=== PATIENT | female | born 1930 | race Caucasian/White ===

== ENCOUNTER → 2017-06-10 | Outpatient (CLI) | payer MEDICARE, BC ==
--- NOTE | 2017-06-10 14:15 | MR ---
EXAMINATION TYPE: MR brain wo con DATE OF EXAM: 06/10/2017 COMPARISON: NONE HISTORY: Rt. sided weakness T1-weighted sagittal, T2, FLAIR, and diffusion axial, and T2 coronal coronal views of the brain are s ubmitted. There is no evidence of acute ischemia. The ventricles, basal cisterns, and sulci overlying the conv exities are consistent with the patient's age. There is no mass effect. Craniocervical junction maintained. Sella turcica has a normal appearance. No cerebellopontine angle mass. Changes of chronic bilateral mastoiditis noted. Periventricular areas of abnormal signal are nonspecific but most typical remote microvascular ischemia. Abnormal signal i nvolving the homero suggestive of remote ischemia. IMPRESSION: 1. No acute intracranial process. 2. Degenerative and nonspecific white matter changes most typical remote ischemia.
== END | disposition home or self-care (01) ==
LOC: RADMRIMAIN 13:07
PROVIDERS: ATTEND Family Medicine
DX: R90.82 White matter disease, unspecified (principal)
CPT/HCPCS: 70551

== ENCOUNTER 2019-02-17 20:05 | Emergency (ER) | payer MEDICARE, BC ==
[2019-02-17 20:11] VITALS: TEMP 97.9
[2019-02-17] MEDS ORDERED: Acetaminophen-Codeine 300-30mg TAB PO STA (20:50)
--- NOTE | 2019-02-17 21:11 | CT ---
EXAMINATION TYPE: CT brain daniella cortez DATE OF EXAM: 02/17/2019 COMPARISON: None HISTORY: Fall. CT DLP: 1180.8 mGycm Automated exposure control for dose reduction was used. TECHNIQUE: CT scan of the head and cervical spine are performed without contrast. FINDINGS: There is cerebral cortical atrophy. There is no mass effect nor midline shift. There is n o sign of intracranial hemorrhage. Calvarium is intact. There is mild hypodensity in the periventricu lar white matter. There is cervical dextroscoliosis. There is mild narrowing of disc spaces at C5-6 and C6-7 with spurr ing of the endplates. Facet joints are intact. Skull base is intact. There is no evidence of a fractu re. There is some apical pleural and pulmonary scarring in both lungs. There is a 3 cm cavitating inf iltrate in the lateral aspect left upper lobe. IMPRESSION: Cerebral atrophy. No acute intracranial abnormality. Mild spondylotic changes in the cervical spine with dextroscoliosis. No fracture seen. Cavitating infiltrate left upper lobe. The possibility of a tumor should be considered.
--- NOTE | 2019-02-17 21:40 | ED ---
Fall HPI - General Source: patient, family Mode of arrival: wheelchair <Boston Genao - Last Filed: 02/18/19 00:42> <Jael Melgar - Last Filed: 02/18/19 02:41> - General Chief Complaint: Fall Stated Complaint: Fall, L thigh swollen Time Seen by Provider: 02/17/19 20:12 - History of Present Illness Initial Comments: Patient is an 88-year-old female with history of Parkinson's is presenting to emergency Department after fall. Patient is nonverbal. Daughter is present in the room and states the patient lives with her. Daughter states she walked into the room and noticed the patient was laying supine on the floor. Daughter r eports swelling on the left upper leg that has slightly resolved with application of ice compress. Patient reports the pain is about 5 at rest and exacerbated with any movement. Daughter also reports the patient has had a cough for the past few days. Daughter denies given a patient medication to alleviate the symptoms. Daughter denies any trauma to the head. (Boston Genao) - Related Data Home Medications Medication Instructions Recorded Confirmed Artificial Tears Ointment 1 gm OPHTHALMIC BID 02/17/19 02/17/19 [Lubrifresh Pm Ointment] Atorvastatin Calcium [Lipitor] 10 mg PO HS 02/17/19 02/17/19 Brinzolamide/Brimonidine Tart 1 drop BOTH EYES BID 02/17/19 02/17/19 [Simbrinza 1%-0.2% Eye Drops] Carbidopa-Levodopa 25-100 mg 1 tab PO TID 02/17/19 02/17/19 [Sinemet 25-100] Insulin Glargine,Hum.rec.anlog 14 unit SQ HS 02/17/19 02/17/19 [Lantus Solostar] Insulin Lispro [humaLOG Kwikpen] See Protocol SQ ACHS 02/17/19 02/17/19 Lisinopril 40 mg PO DAILY 02/17/19 02/17/19 Travoprost [Travatan Z 0.004%] 1 drop BOTH EYES HS 02/17/19 02/17/19 cycloSPORINE 0.05% OPHTH SOLN 1 drop BOTH EYES BID 02/17/19 02/17/19 [Restasis] Allergies Allergy/AdvReac Type Severity Reaction Status Date / Time No Known Allergies Allergy Verified 02/17/19 22:57 Review of Systems ROS Other: All systems not noted in ROS Statement are negative. <Boston Genao - Last Filed: 02/18/19 00:42> ROS Other: All systems not noted in ROS Statement are negative. <MelgarJael Chika - Last Filed: 02/18/19 02:41> ROS Statement: Those systems with pertinent positive or pertinent negative responses have been documented in the HPI. Past Medical History Past Medical History: Cancer, Diabetes Mellitus, Hypertension Additional Past Medical History / Comment(s): parkinson's, breast ca History of Any Multi-Drug Resistant Organisms: None Reported Past Surgical History: Orthopedic Surgery Past Psychological History: No Psychological Hx Reported Smoking Status: Never smoker Past Alcohol Use History: None Reported Past Drug Use History: None Reported <Boston Genao - Last Filed: 02/18/19 00:42> General Exam Limitations: no limitations, language barrier General appearance: alert, in no apparent distress Head exam: Present: atraumatic, normocephalic, normal inspection, other (No lacerations or abrasions noted on the head. Negative Oliveira sign negative periorbital ecchymosis.) Eye exam: Present: normal appearance, PERRL, EOMI Pupils: Present: normal accommodation ENT exam: Present: normal exam, normal oropharynx, mucous membranes moist, TM's normal bilaterally, normal external ear exam, other (No hemotympanum) Neck exam: Present: normal inspection. Absent: tenderness, lymphadenopathy Respiratory exam: Present: normal lung sounds bilaterally Cardiovascular Exam: Present: regular rate, normal rhythm, normal heart sounds GI/Abdominal exam: Present: soft Extremities exam: Present: normal capillary refill, other (+2 dorsalis pedis and posterior tibials.). Absent: normal inspection (Lower extremity swelling on the left upper leg.), full ROM (Limited range of motion due to pain.), tenderness (Tenderness with palpation along the left upper leg.) Back exam: Present: normal inspection. Absent: paraspinal tenderness, vertebral tenderness Neurological exam: Present: alert, oriented X3 Psychiatric exam: Present: normal affect, normal mood Skin exam: Present: warm, intact, normal color <Boston Genao - Last Filed: 02/18/19 00:42> Course Vital Signs 02/17/19 02/17/19 02/17/19 20:08 23:30 23:44 Temperature 97.9 F Pulse Rate 100 89 86 Respiratory 14 18 16 Rate Blood Pressure 143/89 94/59 85/44 O2 Sat by Pulse 98 98 98 Oximetry 02/18/19 02/18/19 00:48 01:00 Temperature Pulse Rate 86 89 Respiratory 16 16 Rate Blood Pressure 111/71 97/59 O2 Sat by Pulse 97 98 Oximetry Medical Decision Making - Lab Data Result diagrams: 02/17/19 22:54 02/17/19 22:54 <Boston Genao - Last Filed: 02/18/19 00:42> - Lab Data Result diagrams: 02/17/19 22:54 02/17/19 22:54 <Jael Melgar - Last Filed: 02/18/19 02:41> - Medical Decision Making Patient is a 8-year-old female with a history of Parkinson's presents to the emergency Department after fall. X-ray series of the left lower extremity is indicative of a fracture of the proximal shaft of the femur. CT without contrast of the brain is negative for acute hemorrhage, midline shift, cerebral swelling. However the CT was able to detect a cavitating infiltrate a left upper lobe. Labs were obtained. At this time care will be transferred to Dr. Melgar. (Boston Genao) She was initially evaluated by mid-level provider. Imaging confirmed a displaced periprosthetic left femur fracture. I evaluated the patient who was neurovascularly intact distal to the femur, she did have a large thigh hematoma, the patient was keeping her leg in a flexed position. I did straighten the leg and placed in a leg immobilizer. Patient remained neurovascularly intact. Patient care was discussed with orthopedic surgery who recommended transfer to higher level of care. Patient care was then discussed with orthopedic surgery at [facility] who accepts the transfer. Patient was transferred to [facility] for further management. (Jael Melgar) - Lab Data Lab Results 02/17/19 02/17/19 02/17/19 Range/Units 22:54 22:54 22:54 WBC 14.2 H (3.8-10.6) k/uL RBC 3.16 L (3.80-5.40) m/uL Hgb 10.1 L (11.4-16.0) gm/dL Hct 31.1 L (34.0-46.0) % MCV 98.4 (80.0-100.0) fL MCH 32.0 (25.0-35.0) pg MCHC 32.5 (31.0-37.0) g/dL RDW 13.2 (11.5-15.5) % Plt Count 415 (150-450) k/uL PT 9.7 (9.0-12.0) sec INR 0.9 (<1.2) APTT 22.4 (22.0-30.0) sec Sodium 137 (137-145) mmol/L Potassium 4.4 (3.5-5.1) mmol/L Chloride 100 (98-107) mmol/L Carbon Dioxide 32 H (22-30) mmol/L Anion Gap 5 mmol/L BUN 21 H (7-17) mg/dL Creatinine 0.70 (0.52-1.04) mg/dL Est GFR (CKD-EPI)AfAm >90 (>60 ml/min/1.73 sqM) Est GFR (CKD-EPI)NonAf 79 (>60 ml/min/1.73 sqM) Glucose 99 (74-99) mg/dL Calcium 9.2 (8.4-10.2) mg/dL Total Bilirubin 0.3 (0.2-1.3) mg/dL AST 26 (14-36) U/L ALT 11 (9-52) U/L Alkaline Phosphatase 115 (38-126) U/L Total Protein 5.7 L (6.3-8.2) g/dL Albumin 3.3 L (3.5-5.0) g/dL Disposition Is patient prescribed a controlled substance at d/c from ED?: No Time of Disposition: 00:43 <Boston Genao - Last Filed: 02/18/19 00:42> Is patient prescribed a controlled substance at d/c from ED?: No - Out of Hospital Transfer - Req. Specs Out of Hospital Transfer - Requested Specifics: Other Emergency Center ([facility]) <Jael Melgar - Last Filed: 02/18/19 02:41> Clinical Impression: Fall, Fracture, proximal femur Disposition: OTHER INSTITUTION NOT DEFINED Instructions (If sedation given, give patient instructions): Fall Prevention for Older Adults (ED) Referrals: Shantelle Blackburn DO [Primary Care Provider] - 1-2 days
--- NOTE | 2019-02-17 21:53 | XR ---
EXAMINATION TYPE: XR Hip Complete LT DATE OF EXAM: 02/17/2019 COMPARISON: NONE HISTORY: Pain TECHNIQUE: 2 views FINDINGS: There is a left hip prosthesis. There is oblique fracture of the proximal shaft of the femu r. Lower end of the fracture is not included. The visualized left hemipelvis shows no displaced fract ure. Left sacroiliac joint appears intact. IMPRESSION: There is a fracture of the proximal shaft of the left femur.
--- NOTE | 2019-02-17 21:55 | XR ---
EXAMINATION TYPE: XR knee complete LT DATE OF EXAM: 02/17/2019 COMPARISON: NONE HISTORY: Fall. Pain. TECHNIQUE: 2 views FINDINGS: I see no displaced fracture. Tibial condyles are somewhat obscured. There is suboptimal pos itioning. There is no sign of a joint effusion. IMPRESSION: Limited exam. No displaced fracture seen of the left knee.
--- NOTE | 2019-02-17 22:05 | XR ---
EXAMINATION TYPE: XR femur LT DATE OF EXAM: 02/17/2019 COMPARISON: NONE HISTORY: Pain TECHNIQUE: 5 views FINDINGS: There is oblique fracture of the proximal shaft of the left femur. There is a 3 cm medial d isplacement. There is left hip prosthesis without dislocation. The knee joint is not well visualized but appears grossly intact. IMPRESSION: Fracture of the proximal shaft of the femur. Suboptimal evaluation of the knee joint. No obvious knee fracture.
--- NOTE | 2019-02-17 22:06 | XR ---
EXAMINATION TYPE: XR chest 1V DATE OF EXAM: 02/17/2019 COMPARISON: NONE HISTORY: Fall. Chest pain TECHNIQUE: Single frontal view of the chest is obtained. FINDINGS: There is a minimal area of increased density left upper lobe. The other lung judge are cl ear. There is no heart failure. Heart size is normal. Thoracic aorta is atheromatous. There is no ple ural effusion. IMPRESSION: Minimal left upper lobe infiltrate.
[2019-02-17 23:09] LABS: HCT 31.1 % (34.0-46.0); HGB 10.1 gm/dL (11.4-16.0); MCHC 32.5 g/dL (31.0-37.0); MCV 98.4 fL (80.0-100.0); Mean Platelet Volume 7.1; Platelet Count 415 k/uL (150-450); RBC 3.16 m/uL (3.80-5.40); RDW 13.2 % (11.5-15.5); WBC 14.2 k/uL (3.8-10.6)
[2019-02-17 23:21] LABS: INR 0.9 (<1.2); Partial Thromboplastin Time 22.4 sec (22.0-30.0); Prothrombin Time 9.7 sec (9.0-12.0)
[2019-02-17 23:27] LABS: ALT 11 U/L (9-52); AST 26 U/L (14-36); African American GFR (CKD) >90 (>60 ml/min/1.73 sqM); Albumin 3.3 g/dL (3.5-5.0); Alkaline Phosphatase 115 U/L (38-126); Anion Gap 5 mmol/L; Blood Urea Nitrogen 21 mg/dL (7-17); Calcium 9.2 mg/dL (8.4-10.2); Carbon Dioxide 32 mmol/L (22-30); Chloride 100 mmol/L (98-107); Glucose 99 mg/dL (74-99); Potassium 4.4 mmol/L (3.5-5.1); Sodium 137 mmol/L (137-145); Total Bilirubin 0.3 mg/dL (0.2-1.3); Total Protein 5.7 g/dL (6.3-8.2)
[2019-02-18 01:37] VITALS: BP 97/59; PULSE 89; RESP 16
== END 2019-02-18 01:45 | disposition other institution (70) ==
LOC: EC 20:05
DX: M97.02XA Periprosthetic fracture around internal prosthetic left hip joint, initial encounter (principal); E11.9 Type 2 diabetes mellitus without complications; I10 Essential (primary) hypertension; Z79.4 Long term (current) use of insulin; Z79.899 Other long term (current) drug therapy; Z85.3 Personal history of malignant neoplasm of breast; W19.XXXA Unspecified fall, initial encounter; Y92.009 Unspecified place in unspecified non-institutional (private) residence as the place of occurrence of the external cause
CPT/HCPCS: 36415; 70450; 71045; 72125; 73502; 80053; 82550; 85027; 85610; 85730; 99285

== ENCOUNTER 2019-03-14 13:22 | Emergency (ER) | payer MEDICARE, BC ==
[2019-03-14] MEDS ORDERED: SODIUM CHLORIDE 0.9% 500 ML 500 ML IV STA (13:30)
[2019-03-14] MEDS ORDERED: SODIUM CHLORIDE 0.9% 1,000 ML IV STA ×2 (13:30→14:58)
[2019-03-14 13:34] VITALS: TEMP 97.9
--- NOTE | 2019-03-14 13:36 | ED ---
Altered Mental Status HPI - General Stated Complaint: hypotension/altered mental status Time Seen by Provider: 03/14/19 13:22 Source: family, EMS, RN notes reviewed, old records reviewed Mode of arrival: EMS - History of Present Illness Initial Comments: This is a 88-year-old female history of Parkinson's disease hypertension diabetes who normally is awake alert oriented times one who is demonstrating decreased level of consciousness today as well as hypotension. She was found have initial BP of 69/41 by paramedics this did improve slightly to 88/48. Accu-Chek was 112. No reports of fevers chills nausea vomiting sweats dysuria or other symptoms. Of note patient is no code per advanced directives MD Complaint: altered mental status, decreased responsiveness - Related Data Home Medications Medication Instructions Recorded Confirmed Brinzolamide/Brimonidine Tart 1 drop BOTH EYES TID@0800,1400,209902/17/19 03/14/19 [Simbrinza 1%-0.2% Eye Drops] Carbidopa-Levodopa 25-100 mg 1 tab PO TID@0800,1400,209902/17/19 03/14/19 [Sinemet 25-100] Insulin Glargine,Hum.rec.anlog 12 unit SQ HS@209902/17/19 03/14/19 [Lantus Solostar] Insulin Lispro [humaLOG Kwikpen] See Protocol SQ AC-TID 02/17/19 03/14/19 Travoprost [Travatan Z 0.004%] 1 drop RIGHT EYE HS@209902/17/19 03/14/19 cycloSPORINE 0.05% OPHTH SOLN 1 drop BOTH EYES BID@08,209902/17/19 03/14/19 [Restasis] Acetaminophen [Tylenol] 650 mg PO Q4H PRN 03/14/19 03/14/19 Amoxic-Pot Clav 875-125Mg 1 tab PO BID@799,209903/14/19 03/14/19 [Augmentin 875-125] Artificial Tears-Hypromellose 1 drop BOTH EYES QID PRN 03/14/19 03/14/19 [Artificial Tear Drops] Atorvastatin Calcium [Lipitor] 10 mg PO DAILY@1700 03/14/19 03/14/19 Atropine Ophth Soln 1% 5Ml [Isopto 2 drops SL Q8H PRN 03/14/19 03/14/19 Atropine 1% 5Ml] Bisacodyl 10 mg RECTAL DAILY PRN 03/14/19 03/14/19 Enoxaparin [Lovenox] 30 mg SQ DAILY@1700 03/14/19 03/14/19 Ferrous Sulfate [Feosol] 325 mg PO DAILY@1700 03/14/19 03/14/19 HYDROcodone/APAP 5-325MG [[place] 1 tab PO Q4H PRN 03/14/19 03/14/19 5-325] Lactose-Reduced Food [Ensure Plus] 120 ml PO TID@0800,1200,1700 03/14/19 03/14/19 Lactulose 10 gm PO BID 03/14/19 03/14/19 Lisinopril 40 mg PO DAILY@0800 03/14/19 03/14/19 Magic Cup 1 dose PO DAILY@1200 03/14/19 03/14/19 Magnesium Hydroxide [Milk of 2,400 mg PO DAILY PRN 03/14/19 03/14/19 Magnesia Concentrate] Metoprolol Tartrate [Lopressor] 25 mg PO BID 03/14/19 03/14/19 Na Phos,M-B/Na Phos,Di-Ba [Fleet 133 ml RECTAL ONCE PRN 03/14/19 03/14/19 Adult] Allergies Allergy/AdvReac Type Severity Reaction Status Date / Time No Known Allergies Allergy Verified 03/14/19 13:39 Review of Systems ROS Statement: Those systems with pertinent positive or pertinent negative responses have been documented in the HPI. ROS Other: All systems not noted in ROS Statement are negative. Past Medical History Past Medical History: Cancer, Diabetes Mellitus, Hypertension Additional Past Medical History / Comment(s): parkinson's, breast ca History of Any Multi-Drug Resistant Organisms: None Reported Past Surgical History: Orthopedic Surgery Past Psychological History: No Psychological Hx Reported Smoking Status: Never smoker Past Alcohol Use History: None Reported Past Drug Use History: None Reported General Exam - General Exam Comments Initial Comments: This is a well-developed asthenic appearing female who is minimally responsive to verbal she does follow commands. Limitations: altered mental status, physical limitation General appearance: alert, lethargic Head exam: Present: atraumatic, normocephalic, normal inspection Eye exam: Present: normal appearance, PERRL, EOMI. Absent: scleral icterus, conjunctival injection, periorbital swelling ENT exam: Present: mucous membranes dry Neck exam: Present: normal inspection, other (No stridor JVD or bruits). Absent: tenderness, meningismus, lymphadenopathy Respiratory exam: Present: normal lung sounds bilaterally. Absent: respiratory distress, wheezes, rales, rhonchi, stridor Cardiovascular Exam: Present: regular rate, normal rhythm, normal heart sounds. Absent: systolic murmur, diastolic murmur, rubs, gallop, clicks GI/Abdominal exam: Present: soft, normal bowel sounds. Absent: distended, tenderness, guarding, rebound, rigid Extremities exam: Present: normal inspection, normal capillary refill. Absent: full ROM, tenderness, pedal edema, joint swelling, calf tenderness Back exam: Present: normal inspection Neurological exam: Present: alert, altered, CN II-XII intact Psychiatric exam: Present: flat affect Skin exam: Present: warm, dry, intact, normal color. Absent: rash Course Vital Signs 03/14/19 03/14/19 03/14/19 13:25 14:30 15:00 Temperature 97.9 F Pulse Rate 98 102 H 101 H Respiratory 24 16 15 Rate Blood Pressure 79/51 99/62 104/54 O2 Sat by Pulse 93 L Oximetry 03/14/19 15:30 Temperature Pulse Rate 90 Respiratory 15 Rate Blood Pressure 117/68 O2 Sat by Pulse Oximetry - Reevaluation(s) Reevaluation #1: 03/14/19 14:49 Patient was noted have a low blood sugar on lab work. She was given 1 amp of D50. 03/14/19 16:09 Reevaluation the patient is Medical Decision Making - Medical Decision Making After long discussion with the patient's daughter patient is scheduled to enter hospice this coming week patient was noted be dehydrated with hyperglycemia as well as episodic hypotension. This is all resolved at this point after t reatment. Patient will be returned back to the skilled nursing. Again the plan is to enter hospice this coming week. - Lab Data Result diagrams: 03/14/19 13:55 03/14/19 13:55 Lab Results 03/14/19 03/14/19 03/14/19 Range/Units 13:55 13:55 13:55 WBC 11.7 H (3.8-10.6) k/uL RBC 3.22 L (3.80-5.40) m/uL Hgb 9.9 L (11.4-16.0) gm/dL Hct 31.6 L (34.0-46.0) % MCV 98.2 (80.0-100.0) fL MCH 30.6 (25.0-35.0) pg MCHC 31.2 (31.0-37.0) g/dL RDW 15.2 (11.5-15.5) % Plt Count 536 H (150-450) k/uL Neutrophils % 89 % Lymphocytes % 5 % Monocytes % 4 % Eosinophils % 2 % Basophils % 0 % Neutrophils # 10.4 H (1.3-7.7) k/uL Lymphocytes # 0.5 L (1.0-4.8) k/uL Monocytes # 0.5 (0-1.0) k/uL Eosinophils # 0.2 (0-0.7) k/uL Basophils # 0.0 (0-0.2) k/uL Hypochromasia Moderate Macrocytosis Slight PT (9.0-12.0) sec INR (<1.2) APTT (22.0-30.0) sec Sodium 143 (137-145) mmol/L Potassium 4.6 (3.5-5.1) mmol/L Chloride 105 (98-107) mmol/L Carbon Dioxide 31 H (22-30) mmol/L Anion Gap 7 mmol/L BUN 41 H (7-17) mg/dL Creatinine 0.93 (0.52-1.04) mg/dL Est GFR (CKD-EPI)AfAm 65 (>60 ml/min/1.73 sqM) Est GFR (CKD-EPI)NonAf 56 (>60 ml/min/1.73 sqM) Glucose 42 L* (74-99) mg/dL POC Glucose (mg/dL) (75-99) mg/dL POC Glu Straw Hat Plunger Operator ID Calcium 8.5 (8.4-10.2) mg/dL Total Bilirubin 0.5 (0.2-1.3) mg/dL AST 30 (14-36) U/L ALT 14 (9-52) U/L Alkaline Phosphatase 279 H (38-126) U/L Ammonia <9 (<30) umol/L Creatine Kinase 47 (30-135) U/L Troponin I (0.000-0.034) ng/mL Total Protein 5.8 L (6.3-8.2) g/dL Albumin 2.9 L (3.5-5.0) g/dL Urine Color Urine Appearance (Clear) Urine pH (5.0-8.0) Ur Specific [place] (1.001-1.035) Urine Protein (Negative) Urine Glucose (UA) (Negative) Urine Ketones (Negative) Urine Blood (Negative) Urine Nitrite (Negative) Urine Bilirubin (Negative) Urine Urobilinogen (<2.0) mg/dL Ur Leukocyte Esterase (Negative) Urine Opiates Screen (NotDetected) Ur Oxycodone Screen (NotDetected) Urine Methadone Screen (NotDetected) Ur Propoxyphene Screen (NotDetected) Ur Barbiturates Screen (NotDetected) U Tricyclic Antidepress (NotDetected) Ur Phencyclidine Scrn (NotDetected) Ur Amphetamines Screen (NotDetected) U Methamphetamines Scrn (NotDetected) U Benzodiazepines Scrn (NotDetected) Urine Cocaine Screen (NotDetected) U Marijuana (THC) Screen (NotDetected) 03/14/19 03/14/19 03/14/19 Range/Units 13:55 13:55 14:28 WBC (3.8-10.6) k/uL RBC (3.80-5.40) m/uL Hgb (11.4-16.0) gm/dL Hct (34.0-46.0) % MCV (80.0-100.0) fL MCH (25.0-35.0) pg MCHC (31.0-37.0) g/dL RDW (11.5-15.5) % Plt Count (150-450) k/uL Neutrophils % % Lymphocytes % % Monocytes % % Eosinophils % % Basophils % % Neutrophils # (1.3-7.7) k/uL Lymphocytes # (1.0-4.8) k/uL Monocytes # (0-1.0) k/uL Eosinophils # (0-0.7) k/uL Basophils # (0-0.2) k/uL Hypochromasia Macrocytosis PT 10.1 (9.0-12.0) sec INR 0.9 (<1.2) APTT 22.6 (22.0-30.0) sec Sodium (137-145) mmol/L Potassium (3.5-5.1) mmol/L Chloride (98-107) mmol/L Carbon Dioxide (22-30) mmol/L Anion Gap mmol/L BUN (7-17) mg/dL Creatinine (0.52-1.04) mg/dL Est GFR (CKD-EPI)AfAm (>60 ml/min/1.73 sqM) Est GFR (CKD-EPI)NonAf (>60 ml/min/1.73 sqM) Glucose (74-99) mg/dL POC Glucose (mg/dL) (75-99) mg/dL POC Glu Straw Hat Plunger Operator ID Calcium (8.4-10.2) mg/dL Total Bilirubin (0.2-1.3) mg/dL AST (14-36) U/L ALT (9-52) U/L Alkaline Phosphatase (38-126) U/L Ammonia (<30) umol/L Creatine Kinase (30-135) U/L Troponin I <0.012 (0.000-0.034) ng/mL Total Protein (6.3-8.2) g/dL Albumin (3.5-5.0) g/dL Urine Color Yellow Urine Appearance Clear (Clear) Urine pH 6.0 (5.0-8.0) Ur Specific [place] 1.022 (1.001-1.035) Urine Protein Trace H (Negative) Urine Glucose (UA) 2+ H (Negative) Urine Ketones Trace H (Negative) Urine Blood Negative (Negative) Urine Nitrite Negative (Negative) Urine Bilirubin Negative (Negative) Urine Urobilinogen 4.0 (<2.0) mg/dL Ur Leukocyte Esterase Negative (Negative) Urine Opiates Screen Detected H (NotDetected) Ur Oxycodone Screen Not Detected (NotDetected) Urine Methadone Screen Not Detected (NotDetected) Ur Propoxyphene Screen Not Detected (NotDetected) Ur Barbiturates Screen Not Detected (NotDetected) U Tricyclic Antidepress Not Detected (NotDetected) Ur Phencyclidine Scrn Not Detected (NotDetected) Ur Amphetamines Screen Not Detected (NotDetected) U Methamphetamines Scrn Not Detected (NotDetected) U Benzodiazepines Scrn Not Detected (NotDetected) Urine Cocaine Screen Not Detected (NotDetected) U Marijuana (THC) Screen Not Detected (NotDetected) 03/14/19 Range/Units 14:42 WBC (3.8-10.6) k/uL RBC (3.80-5.40) m/uL Hgb (11.4-16.0) gm/dL Hct (34.0-46.0) % MCV (80.0-100.0) fL MCH (25.0-35.0) pg MCHC (31.0-37.0) g/dL RDW (11.5-15.5) % Plt Count (150-450) k/uL Neutrophils % % Lymphocytes % % Monocytes % % Eosinophils % % Basophils % % Neutrophils # (1.3-7.7) k/uL Lymphocytes # (1.0-4.8) k/uL Monocytes # (0-1.0) k/uL Eosinophils # (0-0.7) k/uL Basophils # (0-0.2) k/uL Hypochromasia Macrocytosis PT (9.0-12.0) sec INR (<1.2) APTT (22.0-30.0) sec Sodium (137-145) mmol/L Potassium (3.5-5.1) mmol/L Chloride (98-107) mmol/L Carbon Dioxide (22-30) mmol/L Anion Gap mmol/L BUN (7-17) mg/dL Creatinine (0.52-1.04) mg/dL Est GFR (CKD-EPI)AfAm (>60 ml/min/1.73 sqM) Est GFR (CKD-EPI)NonAf (>60 ml/min/1.73 sqM) Glucose (74-99) mg/dL POC Glucose (mg/dL) 156 H (75-99) mg/dL POC Glu Straw Hat Plunger Operator ID Dorina Pearl Calcium (8.4-10.2) mg/dL Total Bilirubin (0.2-1.3) mg/dL AST (14-36) U/L ALT (9-52) U/L Alkaline Phosphatase (38-126) U/L Ammonia (<30) umol/L Creatine Kinase (30-135) U/L Troponin I (0.000-0.034) ng/mL Total Protein (6.3-8.2) g/dL Albumin (3.5-5.0) g/dL Urine Color Urine Appearance (Clear) Urine pH (5.0-8.0) Ur Specific [place] (1.001-1.035) Urine Protein (Negative) Urine Glucose (UA) (Negative) Urine Ketones (Negative) Urine Blood (Negative) Urine Nitrite (Negative) Urine Bilirubin (Negative) Urine Urobilinogen (<2.0) mg/dL Ur Leukocyte Esterase (Negative) Urine Opiates Screen (NotDetected) Ur Oxycodone Screen (NotDetected) Urine Methadone Screen (NotDetected) Ur Propoxyphene Screen (NotDetected) Ur Barbiturates Screen (NotDetected) U Tricyclic Antidepress (NotDetected) Ur Phencyclidine Scrn (NotDetected) Ur Amphetamines Screen (NotDetected) U Methamphetamines Scrn (NotDetected) U Benzodiazepines Scrn (NotDetected) Urine Cocaine Screen (NotDetected) U Marijuana (THC) Screen (NotDetected) - EKG Data -: EKG Interpreted by Me EKG shows normal: sinus rhythm (Normal sinus rhythm 100 MO interval 132 QRS duration 80 QT since QTC 346/446 st-t wave changes) - Radiology Data Radiology results: report reviewed (I did review the imaging and report no acute findings.), image reviewed Disposition Clinical Impression: Delirium due to general medical condition, Dehydration, Hypotensive episode, Hypoglycemia, Parkinson disease Disposition: HOME SELF-CARE Condition: Good Instructions (If sedation given, give patient instructions): Altered Mental Status (ED), Dehydration (ED), Non-diabetic Hypoglycemia (ED), Hypotension (ED) Additional Instructions: Increase oral fluids Is patient prescribed a controlled substance at d/c from ED?: No Referrals: Shantelle Blackburn DO [Primary Care Provider] - 1-2 days
[2019-03-14 14:09] LABS: Basophils % (A) 0 %; Eosinophils # (A) 0.2 k/uL (0-0.7); Eosinophils % (A) 2 %; HCT 31.6 % (34.0-46.0); HGB 9.9 gm/dL (11.4-16.0); Hypochromasia Moderate; Lymphocytes # (A) 0.5 k/uL (1.0-4.8); Lymphocytes % (A) 5 %; MCH 30.6 pg (25.0-35.0); MCHC 31.2 g/dL (31.0-37.0); MCV 98.2 fL (80.0-100.0); Macrocytosis Slight; Mean Platelet Volume 7.4; Monocytes # (A) 0.5 k/uL (0-1.0); Monocytes % (A) 4 %; Neutrophils # (A) 10.4 k/uL (1.3-7.7); Neutrophils % (A) 89 %; Platelet Count 536 k/uL (150-450); RBC 3.22 m/uL (3.80-5.40); RDW 15.2 % (11.5-15.5); WBC 11.7 k/uL (3.8-10.6)
[2019-03-14 14:17] LABS: Albumin 2.9 g/dL (3.5-5.0); Calcium 8.5 mg/dL (8.4-10.2); Potassium 4.6 mmol/L (3.5-5.1); Total Bilirubin 0.5 mg/dL (0.2-1.3); Total Protein 5.8 g/dL (6.3-8.2)
[2019-03-14 14:26] LABS: INR 0.9 (<1.2); Partial Thromboplastin Time 22.6 sec (22.0-30.0); Prothrombin Time 10.1 sec (9.0-12.0)
[2019-03-14] MEDS ORDERED: DEXTROSE 50% SYRINGE 50 ML IVP STA (14:29)
[2019-03-14 14:40] LABS: Appearance,Urine Clear (Clear); Bilirubin,Urine Negative (Negative); Blood,Urine Negative (Negative); Color,Urine Yellow; Glucose,Urine (UA) 2+ (Negative); Ketones,Urine Trace (Negative); Leukocyte Esterase,Urine Negative (Negative); Nitrite,Urine Negative (Negative); Protein,Urine Trace (Negative); Specific Gravity,Urine 1.022 (1.001-1.035)
[2019-03-14 14:44] LABS: Glucose,Whole Blood 156 mg/dL (75-99)
[2019-03-14 14:50] LABS: Amphetamine Screen,Urine Not Detected (NotDetected); Barbiturate Screen,Urine Not Detected (NotDetected); Benzodiazepines Screen,Urine Not Detected (NotDetected); Cocaine Screen,Urine Not Detected (NotDetected); Methadone Screen, Urine Not Detected (NotDetected); Opiate Screen,Urine Detected (NotDetected); Oxycodone Screen, Urine Not Detected (NotDetected); Phencyclidine Screen,Urine Not Detected (NotDetected); Tricyclic Antidepressant,Urine Not Detected (NotDetected); Urn Cannabinoid Scrn Not Detected (NotDetected)
--- NOTE | 2019-03-14 14:54 | XR ---
EXAMINATION TYPE: XR chest 1V portable DATE OF EXAM: 03/14/2019 COMPARISON: Prior chest x-ray 02/17/2019 HISTORY: Altered mental status TECHNIQUE: Single frontal view of the chest is obtained. FINDINGS: Patient is rotated. There are overlying cardiac leads. Aorta is dense. There is no focal ai r space opacity, pleural effusion, or pneumothorax seen. The cardiac silhouette size is within tacos l limits. The osseous structures are intact. IMPRESSION: No acute process.
[2019-03-14 17:32] VITALS: BP 134/77; PULSE 95; RESP 15
== END 2019-03-14 17:33 | disposition home or self-care (01) ==
LOC: EC 13:22
DX: I95.9 Hypotension, unspecified (principal); E86.0 Dehydration; F05 Delirium due to known physiological condition; G20 Parkinson's disease; E11.649 Type 2 diabetes mellitus with hypoglycemia without coma; I10 Essential (primary) hypertension; Z79.4 Long term (current) use of insulin; Z79.899 Other long term (current) drug therapy; Z85.3 Personal history of malignant neoplasm of breast
CPT/HCPCS: 36415; 71045; 80053; 80306; 81003; 82140; 82550; 84484; 85025; 85610; 85730; 93005; 96361; 96374; 99285